=== PATIENT | male | born 2000 | race Caucasian/White ===

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

== ENCOUNTER 2021-09-19 09:42 | Inpatient (IN) | payer OTHER ==
[2021-09-19] MEDS ORDERED: SODIUM CHLORIDE 1,000 ML IV STA (10:15)
[2021-09-19] MEDS ORDERED: KETOROLAC TROMETHAMINE 30 MG/1 ML VIAL IVPUSH ONE (10:15)
[2021-09-19] MEDS ORDERED: KETOROLAC TROMETHAMINE 30 MG/1 ML VIAL ONE (11:06)
[2021-09-19 11:49] LABS: BASO % 0.5 % (0-2.0); EOS % 0.5 % (0-4.5); HEMATOCRIT 46.6 % (35.4-49); HEMOGLOBIN 15.6 GM/dL (11.7-16.9); MCHC 33.5 g/dl (32.0-35.9); MEAN CELL VOLUME 83.5 fl (80-96); MEAN PLT VOLUME 7.9 fl (7.5-11.1); MONO % 19.4 % (3.8-10.2); NEUT % 47.6 % (42.8-82.8); PLATELET COUNT 189 10^3/uL (134-434); RBC 5.58 M/mm3 (4.00-5.60); RDW 13.9 % (11.9-15.9); WHITE BLOOD COUNT 2.7 K/mm3 (4.0-10.0)
[2021-09-19 12:09] LABS: ALBUMIN 3.9 g/dl (3.4-5.0)
[2021-09-19 12:12] LABS: CREATININE 0.9 mg/dL (0.55-1.3)
[2021-09-19 12:13] LABS: BILIRUBIN,TOTAL 3.8 mg/dL (0.2-1); BLOOD UREA NITROGEN 7.2 mg/dL (7-18); TOT PROT 7.2 g/dl (6.4-8.2)
[2021-09-19 12:38] LABS: EPI CELLS 1 /uL (0-25.1); HYALINE CASTS 0 /uL (0-3.1); PH,URINE 5.5 (5.0-8.0); URINE APPEARANCE CLEAR; URINE BACTERIA 0 /uL (0-1359); URINE BILIRUBIN 3+ (NEGATIVE); URINE COLOR DK YELLOW; URINE GLUCOSE (UA) NEGATIVE (NEGATIVE); URINE KETONE 3+ (NEGATIVE); URINE LEUK ESTERASE TRACE (NEGATIVE); URINE NITRITE NEGATIVE (NEGATIVE); URINE PROTEIN NEGATIVE (NEGATIVE); URINE RBC 13 /uL (0-23.9); URINE WBC 2 /uL (0-25.8)
[2021-09-19] MEDS ORDERED: SODIUM CHLORIDE 1,000 ML IV SCH (14:15)
[2021-09-19] MEDS ORDERED: ONDANSETRON 4 MG/2 ML VIAL IVPUSH PRN (14:40)
[2021-09-20] MEDS ORDERED: BENZOCAINE/MENTHOL 1 EACH LOZENGE MM PRN (00:29)
[2021-09-20 09:47] LABS: ALBUMIN 3.4 g/dl (3.4-5.0); BLOOD UREA NITROGEN 8.8 mg/dL (7-18); CALCIUM 8.7 mg/dL (8.5-10.1)
[2021-09-20 09:50] LABS: CREATININE 0.9 mg/dL (0.55-1.3)
[2021-09-20 09:52] LABS: BILIRUBIN,TOTAL 1.2 mg/dL (0.2-1); TOT PROT 6.6 g/dl (6.4-8.2)
[2021-09-20 15:43] LABS: INR 1.04 (0.83-1.09)
[2021-09-21 12:20] LABS: BASO % 0.6 % (0-2.0); EOS % 0.6 % (0-4.5); HEMATOCRIT 45.2 % (35.4-49); HEMOGLOBIN 15.4 GM/dL (11.7-16.9); LYMPH % 31.2 % (8-40); MCH 28.6 pg (25.7-33.7); MCHC 34.1 g/dl (32.0-35.9); MEAN CELL VOLUME 83.9 fl (80-96); MEAN PLT VOLUME 7.8 fl (7.5-11.1); MONO % 17.1 % (3.8-10.2); NEUT % 50.5 % (42.8-82.8); PLATELET COUNT 190 10^3/uL (134-434); RBC 5.38 M/mm3 (4.00-5.60); RDW 13.7 % (11.9-15.9); WHITE BLOOD COUNT 2.8 K/mm3 (4.0-10.0)
[2021-09-21 12:27] LABS: ALBUMIN 3.7 g/dl (3.4-5.0); CALCIUM 9.1 mg/dL (8.5-10.1)
[2021-09-21 12:30] LABS: CREATININE 0.9 mg/dL (0.55-1.3)
[2021-09-21 12:32] LABS: BILIRUBIN,TOTAL 1.4 mg/dL (0.2-1)
[2021-09-22 10:23] LABS: HEMATOCRIT 47.5 % (35.4-49); HEMOGLOBIN 16.1 GM/dL (11.7-16.9); MCH 28.2 pg (25.7-33.7); MEAN CELL VOLUME 82.9 fl (80-96); MEAN PLT VOLUME 8.1 fl (7.5-11.1); PLATELET COUNT 189 10^3/uL (134-434); RBC 5.73 M/mm3 (4.00-5.60); RDW 13.4 % (11.9-15.9); WHITE BLOOD COUNT 2.1 K/mm3 (4.0-10.0)
[2021-09-22 10:58] LABS: ALBUMIN 3.9 g/dl (3.4-5.0); BLOOD UREA NITROGEN 8.8 mg/dL (7-18); CALCIUM 9.4 mg/dL (8.5-10.1); MAGNESIUM 2.1 mg/dL (1.8-2.4)
[2021-09-22 11:01] LABS: ANISOCYTOSIS 3+; MACROCYTOSIS 0; PHOSPHOROUS 3.2 mg/dL (2.5-4.9)
[2021-09-22 11:03] LABS: BILIRUBIN,TOTAL 1.1 mg/dL (0.2-1); TOT PROT 7.6 g/dl (6.4-8.2)
[2021-09-22] MEDS ORDERED: PIPERACILLIN/TAZOB 3.375 GM 3.375 GM in DEXTROSE 5%-WATER - 50 ML IVPB SCH (12:00)
[2021-09-22] MEDS ORDERED: cefTRIAXone SODIUM 1 GM VIAL ONE (12:36)
[2021-09-22] MEDS ORDERED: DEXTROSE 5%-WATER - 50 ML IVPB ONE (12:36)
[2021-09-22] MEDS: CEFTRIAXONE 1 GM in DEXTROSE 5%-WATER - 50 ML IVPB SCH (14:00)
[2021-09-23 08:07] LABS: BASO % 0.4 % (0-2.0); EOS % 1.4 % (0-4.5); HEMATOCRIT 45.9 % (35.4-49); HEMOGLOBIN 15.7 GM/dL (11.7-16.9); LYMPH % 41.4 % (8-40); MCH 28.4 pg (25.7-33.7); MCHC 34.2 g/dl (32.0-35.9); MEAN PLT VOLUME 7.8 fl (7.5-11.1); MONO % 18.7 % (3.8-10.2); NEUT % 38.1 % (42.8-82.8); PLATELET COUNT 179 10^3/uL (134-434); RBC 5.53 M/mm3 (4.00-5.60); RDW 13.4 % (11.9-15.9); WHITE BLOOD COUNT 2.1 K/mm3 (4.0-10.0)
[2021-09-23 08:13] LABS: INR 1.22 (0.83-1.09); PROTHROMBIN TIME (PATIENT) 14.1 SEC (9.7-13.0)
[2021-09-23 08:26] LABS: CALCIUM 9.1 mg/dL (8.5-10.1)
[2021-09-23 08:27] LABS: BLOOD UREA NITROGEN 9.6 mg/dL (7-18)
[2021-09-23 08:29] LABS: BILIRUBIN,DIRECT 0.6 mg/dL (0.0-0.2)
[2021-09-23 08:31] LABS: BILIRUBIN,TOTAL 1.5 mg/dL (0.2-1); TOT PROT 7.2 g/dl (6.4-8.2)
[2021-09-23] MEDS ORDERED: cefTRIAXone SODIUM 1 GM VIAL ONE (09:31)
[2021-09-23] MEDS ORDERED: DEXTROSE 5%-WATER - 50 ML IVPB ONE (09:31)
[2021-09-23] MEDS: CEFTRIAXONE 1 GM in DEXTROSE 5%-WATER - 50 ML IVPB SCH (09:38)
[2021-09-23] MEDS ORDERED: INDOMETHACIN 50 MG RECTAL SUPPOSITORY PR ONE ×2 (10:00→13:06)
[2021-09-23] MEDS ORDERED: MIDAZOLAM HCL 2 MG/2 ML SINGLE DOSE VIAL ONE (12:33)
[2021-09-23] MEDS ORDERED: IOHEXOL 300 MG/ML INFUS..BTL IJ ONE (13:11)
[2021-09-23] MEDS ORDERED: LACTATED RINGERS SOLUTION 1,000 ML/1,000 ML INFUS.BAG IV SCH ×2 (13:45→23:00)
[2021-09-23] MEDS: LACTOBACILLUS ACIDOPHILUS 1 TABLET PO SCH (22:17)
[2021-09-24] MEDS: LACTATED RINGERS SOLUTION 1,000 ML/1,000 ML INFUS.BAG IV SCH ×3 (02:25→15:57)
[2021-09-24 08:31] LABS: BASO % 0.3 % (0-2.0); EOS % 1.2 % (0-4.5); HEMOGLOBIN 14.6 GM/dL (11.7-16.9); LYMPH % 31.6 % (8-40); MCH 28.5 pg (25.7-33.7); MCHC 34.7 g/dl (32.0-35.9); MEAN CELL VOLUME 82.1 fl (80-96); MONO % 13.9 % (3.8-10.2); PLATELET COUNT 171 10^3/uL (134-434); RBC 5.12 M/mm3 (4.00-5.60); RDW 13.5 % (11.9-15.9); WHITE BLOOD COUNT 3.3 K/mm3 (4.0-10.0)
[2021-09-24 09:02] LABS: CALCIUM 8.5 mg/dL (8.5-10.1)
[2021-09-24 09:03] LABS: ALBUMIN 3.4 g/dl (3.4-5.0); BLOOD UREA NITROGEN 8.6 mg/dL (7-18)
[2021-09-24 09:05] LABS: CREATININE 0.9 mg/dL (0.55-1.3)
[2021-09-24 09:06] LABS: BILIRUBIN,DIRECT 0.6 mg/dL (0.0-0.2)
[2021-09-24 09:07] LABS: TOT PROT 6.4 g/dl (6.4-8.2)
[2021-09-24 09:08] LABS: BILIRUBIN,TOTAL 0.8 mg/dL (0.2-1)
[2021-09-24] MEDS ORDERED: cefTRIAXone SODIUM 1 GM VIAL ONE (09:23)
[2021-09-24] MEDS ORDERED: DEXTROSE 5%-WATER - 50 ML IVPB ONE (09:24)
[2021-09-24] MEDS: LACTOBACILLUS ACIDOPHILUS 1 TABLET PO SCH ×2 (09:34→21:53)
[2021-09-24] MEDS: CEFTRIAXONE 1 GM in DEXTROSE 5%-WATER - 50 ML IVPB SCH (10:57)
[2021-09-25] MEDS: LACTOBACILLUS ACIDOPHILUS 1 TABLET PO SCH ×3 (09:12→22:00)
[2021-09-25] MEDS ORDERED: DEXTROSE 5%-WATER - 50 ML IVPB ONE (09:14)
[2021-09-25] MEDS ORDERED: cefTRIAXone SODIUM 1 GM VIAL ONE (09:14)
[2021-09-25] MEDS ORDERED: BUPIVACAINE HCL/PF 0.5% (5MG/ML) 10 ML VIAL ONE (09:31)
[2021-09-25] MEDS: CEFTRIAXONE 1 GM in DEXTROSE 5%-WATER - 50 ML IVPB SCH (09:35)
[2021-09-25] MEDS ORDERED: PROPOFOL 20 ML ONE ×2 (10:18)
[2021-09-25] MEDS ORDERED: MIDAZOLAM HCL 2 MG/2 ML SINGLE DOSE VIAL ONE (10:18)
[2021-09-25] MEDS ORDERED: LIDOCAINE HCL/PF 2% SDV 5ML VIAL ONE (10:22)
[2021-09-25] MEDS ORDERED: ROCURONIUM BROMIDE 50 MG/5 ML SYRINGE ONE (10:23)
[2021-09-25] MEDS ORDERED: GLYCOPYRROLATE 0.2 MG/1 ML VIAL ONE ×2 (11:19→11:52)
[2021-09-25] MEDS ORDERED: BUPIVACAINE HCL/PF 0.5% (5 MG/ML) 30 ML VIAL IJ ONE (11:35)
[2021-09-25] MEDS ORDERED: KETOROLAC TROMETHAMINE 30 MG/1 ML VIAL ONE (11:47)
[2021-09-25] MEDS ORDERED: NEOSTIGMINE METHYLSULFATE 0.5 MG/ML - 10 ML MDV ONE (11:51)
[2021-09-25] MEDS ORDERED: ONDANSETRON 4 MG/2 ML VIAL IVPUSH PRN ×2 (12:15→14:46)
[2021-09-25] MEDS ORDERED: LACTATED RINGERS SOLUTION 1,000 ML IV SCH (12:15)
[2021-09-25] MEDS ORDERED: ACETAMINOPHEN 500 MG TABLET (FP) PO PRN ×2 (12:23→14:46)
[2021-09-25] MEDS ORDERED: oxyCODONE HCL 5 MG TABLET PO PRN ×2 (12:25→14:46)
[2021-09-25] MEDS ORDERED: DOCUSATE SODIUM 100 MG CAPSULE (FP) PO SCH (14:00)
[2021-09-25] MEDS: LACTATED RINGERS SOLUTION 1,000 ML IV SCH (16:11)
[2021-09-25] MEDS ORDERED: IBUPROFEN 600 MG TABLET (FP) PO PRN ×2 (18:00)
[2021-09-25] MEDS: DOCUSATE SODIUM 100 MG CAPSULE (FP) PO SCH (22:00)
[2021-09-26] MEDS: DOCUSATE SODIUM 100 MG CAPSULE (FP) PO SCH ×2 (06:02→14:36)
[2021-09-26] MEDS: LACTATED RINGERS SOLUTION 1,000 ML IV SCH (07:25)
[2021-09-26 08:27] VITALS: BMI 30.3
[2021-09-26 08:30] LABS: BASO % 0.2 % (0-2.0); EOS % 0.4 % (0-4.5); HEMATOCRIT 41.6 % (35.4-49); HEMOGLOBIN 14.1 GM/dL (11.7-16.9); LYMPH % 22.5 % (8-40); MEAN CELL VOLUME 82.3 fl (80-96); MEAN PLT VOLUME 7.9 fl (7.5-11.1); MONO % 11.1 % (3.8-10.2); NEUT % 65.8 % (42.8-82.8); PLATELET COUNT 232 10^3/uL (134-434); RBC 5.05 M/mm3 (4.00-5.60); RDW 13.3 % (11.9-15.9)
[2021-09-26 08:55] LABS: CALCIUM 8.8 mg/dL (8.5-10.1)
[2021-09-26 08:56] LABS: ALBUMIN 3.2 g/dl (3.4-5.0); BLOOD UREA NITROGEN 8.6 mg/dL (7-18)
[2021-09-26 09:00] LABS: TOT PROT 6.3 g/dl (6.4-8.2)
[2021-09-26] MEDS: LACTOBACILLUS ACIDOPHILUS 1 TABLET PO SCH (09:41)
[2021-09-26] MEDS ORDERED: FAMOTIDINE 20 MG TABLET PO ONE (09:48)
[2021-09-26] MEDS ORDERED: KETOROLAC TROMETHAMINE 30 MG/1 ML VIAL IVPUSH ONE (09:49)
[2021-09-26 17:24] VITALS: BP 121/71; PULSE 84; TEMP 98.8
== END 2021-09-26 17:27 | disposition home or self-care (01) | DRG 263 ==
LOC: JER 09:42 → INTOOBSV 13:31 → UNDOADMOB 13:31 → JERBED 13:31 → J8W 09-20 00:04 → OBSVTOIN 09-23 11:40 → J8W 09-23 14:51
PROVIDERS: ADMIT Internal Medicine; ATTEND Internal Medicine
PROC: 0FC98ZZ Extirpation of Matter from Common Bile Duct, Via Natural or Artificial Opening Endoscopic (ICD-10-PCS; 2021-09-23)
PROC: BF10YZZ Fluoroscopy of Bile Ducts using Other Contrast (ICD-10-PCS; 2021-09-23)
PROC: 0FT44ZZ Resection of Gallbladder, Percutaneous Endoscopic Approach (ICD-10-PCS; principal; 2021-09-25 12:00)
DX: K80.00 Calculus of gallbladder with acute cholecystitis without obstruction (principal); U07.1 COVID-19; K83.09 Other cholangitis; D70.9 Neutropenia, unspecified; R10.11 Right upper quadrant pain; R74.01 Elevation of levels of liver transaminase levels; R94.5 Abnormal results of liver function studies
CPT/HCPCS: 36415; 74181-TC; 76000-TC-FY; 76705-TC; 80048; 80053; 80076; 80307; 81003; 82150; 82248; 83690; 83735; 84100; 85025; 85610; 86140; 86850; 86900; 86901; 88304-TC; 93005; 93010; 94010; 94760; 99285-25; C9803-CS; G0378; U0003; U0005